=== PATIENT | female | born 1950 | race Caucasian/White ===

== ENCOUNTER 2017-02-06 14:55 | Observation (INO) | payer BC ==
[~2017-02-06] VITALS: Ht 160 cm; Wt 68.7 kg
[2017-02-06] MEDS ORDERED: OMEP20TA PO (15:14)
[2017-02-06] MEDS ORDERED: FLUT45AE IN (15:14)
[2017-02-06] MEDS ORDERED: LORA-741 PO (15:14)
[2017-02-06] MEDS ORDERED: SERT25TA PO (15:14)
[2017-02-06] MEDS ORDERED: MAGN500T15 PO (15:14)
[2017-02-06] MEDS ORDERED: SPRIN/30 INH (15:14)
[2017-02-06] MEDS ORDERED: ASPIRIN 81 MG CHEW PO STA (15:22)
[2017-02-06] MEDS ORDERED: NITROGLYCERIN 0.4 MG SL PER TAB CHARGE SL PRN ×2 (15:30→18:45)
[2017-02-06] MEDS ORDERED: OPTIRAY 320 IV PRN (15:45)
[2017-02-06 15:47] LABS: BASO % 0.9 %; BASO ABS # 0.07 K/uL (0-0.2); COMPLETE YES; EOS % 5.8 %; HEMATOCRIT 39.5 % (37-47); IG% 0.3 %; LYMPH % 27.2 %; LYMPH ABS # 2.01 K/uL (1.2-3.4); MEAN CELL VOLUME 88.6 fL (80-100); MEAN CORPUSCULAR HEMOGLOBIN 29.6 pg (25-34); MEAN CORPUSCULAR HGB CONC 33.4 g/dl (32-36); MEAN PLATELET VOLUME 9.2 fL (7.4-10.4); MONO % 10.2 %; NEUT % 55.6 %; PLATELET COUNT 298 K/uL (130-400); RED BLOOD COUNT 4.46 M/uL (4.2-5.4); WHITE BLOOD COUNT 7.38 K/uL (4.8-10.8)
--- NOTE | 2017-02-06 15:55 | DIAGNOSTIC IMAGING REPORT ---
SINGLE VIEW CHEST CLINICAL HISTORY: Atypical chest pain. FINDINGS: An AP, portable, upright chest radiograph is obtained. No prior studies are available for comparison at the time of dictation. The examination is degraded by portable technique and patient rotation. The cardiomediastinal silhouette is unremarkable. Emphysema is suspected. There is nonspecific interstitial thickening. No airspace consolidation or large pleural effusion is identified. There is a questionable nodular density projecting over the right lung base. No pneumothorax is seen. The skeletal structures are osteopenic. The bony thorax is grossly intact. IMPRESSION: 1. Suspect emphysema. No acute cardiopulmonary abnormality is seen. 2. Question a nodular density at the right lung base which marrow present artifact/super in position of shadows. Correlation with a dedicated PA and lateral examination is recommended. Electronically signed by: Gene Ford M.D. 02/06/2017 3:53 PM Dictated Date/Time: 02/06/2017 3:51 PM
[2017-02-06 16:11] LABS: BLOOD UREA NITROGEN 15 mg/dl (7-18); BUN/CREATININE RATIO 16.1 (10-20); CARBON DIOXIDE 27 mmol/L (21-32); CHLORIDE 105 mmol/L (98-107); GLUCOSE 93 mg/dl (70-99); POTASSIUM 3.9 mmol/L (3.5-5.1); SODIUM 139 mmol/L (136-145)
[2017-02-06 16:16] LABS: CKMB/CK RATIO 1.5 (0-3.0)
--- NOTE | 2017-02-06 17:09 | DIAGNOSTIC IMAGING REPORT ---
(CHEST FOR PE) ANGIO WITH CT DOSE: 301.32 mGycm HISTORY: Chest pain dyspnea TECHNIQUE: Multiaxial CT images of the chest were performed following the intravenous administration of contrast to evaluate the pulmonary arteries. Maximal intensity projection images were also obtained. A dose lowering technique was utilized adhering to the principles of ALARA. COMPARISON STUDY: None. FINDINGS: Mild left ischemic change thoracic aorta. Moderate emphysematous change. Diffuse chronic interstitial change. Pulmonary vascularity enhances appropriately. There are no significant filling defects. IMPRESSION: No evidence for pulmonary embolus. Emphysematous change. Diffuse parenchymal fibrosis. The above report was generated using voice recognition software. It may contain grammatical, syntax or spelling errors. Electronically signed by: Papo Aden M.D. 02/06/2017 5:08 PM Dictated Date/Time: 02/06/2017 5:06 PM
[2017-02-06] MEDS ORDERED: ACETAMINOPHEN 325 MG TAB PO PRN (18:45)
[2017-02-06] MEDS ORDERED: ONDANSETRON INJ 2 MG/ML 2 ML VIAL IV PRN (18:45)
[2017-02-06] MEDS ORDERED: POLYETHYLENE (MIRALAX) 17 GM PACK PO PRN (18:45)
[2017-02-06] MEDS ORDERED: ALUMINUM/MAGNESIUM/SIMETH (MAALOX MAX) 30 ML UDC PO PRN (18:45)
[2017-02-06] MEDS ORDERED: MAGNESIUM HYDROXIDE SUSP 30 ML UDC PO PRN (18:45)
--- NOTE | 2017-02-06 19:21 | EMERGENCY ROOM VISIT NOTE ---
History Report prepared by Corky: Aris Malone Under the Supervision of: Dr. Davonte Shannon D.O. First contact with patient: 15:12 Chief Complaint: CHEST PAIN Stated Complaint: CHEST PAIN Nursing Triage Summary: since 0700. patient c/o generalized chest tightness to lower chest. denies SOB. pain radiates to back. History of Present Illness The patient is a 66 year old female who presents to the Emergency Room with complaints of back pain that began this morning. Earlier this morning, the patient's pain started as chest pain that she describes as a belt across her chest wrapping around to her back. She lay down for a while and her pain improved, but is still present. She denies any recent exertion because she gets very short of breath with it. She denies any fevers, shortness of breath, jaw pain, arm pain, nausea, vomiting, diarrhea, or abnormal urinary symptoms. She denies any recent stress tests or cardiac catheterizations. Patient denies swelling of calves, recent trips, history of immobilization or recent surgery, prior history of DVT, hemoptysis, history of malignancy, or recent history of smoking. Patient denies diabetes, hypertension, hyperlipidemia, CAD, cancer, PE , history of sudden at a young age, and smoking. Source of History: patient Onset: this morning Position: back (upper) Symptom Intensity: moderate Quality: ache Timing: constant Associated Symptoms: + chest pain (tightness), No fevers, No SOB, No nausea , No vomiting, No diarrhea, No urinary symptoms Review of Systems See HPI for pertinent positives & negatives. A total of 10 systems reviewed and were otherwise negative. Past Medical & Surgical Medical Problems: (1) Chest pain (2) No Known Active Medical Problems Family History Omitted secondary to the patient's age. Social History Smoking Status: Former Smoker Smokeless Tobacco Use: No Drug Use: none Marital Status: Housing Status: lives with significant other Current/Historical Medications Scheduled Fluticasone-Salmeterol 45/21 Mcg (Advair Hfa 45/21 Mcg), 2 PUFFS IN BID Lorazepam (Ativan), 0.5 MG PO HS Magnesium (Magnesium), 500 MG PO DAILY Omeprazole (Omeprazole), 40 MG PO DAILY Sertraline (Zoloft), 25 MG PO DAILY Tiotropium [place] (Spiriva Handihaler), 1 CAP INH DAILY Allergies Coded Allergies: No Known Allergies (Unverified , 02/06/17) Physical Exam Vital Signs Date Time Temp Pulse Resp B/P (MAP) Pulse Ox O2 Delivery O2 Flow Rate FiO2 02/06/17 17:43 77 16 138/89 93 Room Air 02/06/17 16:24 83 16 127/82 96 Room Air 02/06/17 16:09 71 02/06/17 15:50 97 18 116/83 98 Room Air 02/06/17 15:42 69 16 167/89 94 Room Air 02/06/17 15:05 94 Room Air 02/06/17 15:02 36.7 66 22 148/90 94 Room Air Physical Exam GENERAL: Sitting up in bed, alert, well appearing, well nourished, no distress, non-toxic EYE EXAM: normal conjunctiva. OROPHARYNX: no exudate, no erythema, lips, buccal mucosa, and tongue normal and mucous membranes are moist NECK: supple, no nuchal rigidity, no adenopathy, non-tender LUNGS: Clear to auscultation. Normal chest wall mechanics HEART: no murmurs, S1 normal and S2 normal CHEST: Reproducible anterior chest wall tenderness. Different from her stated complaint. ABDOMEN: abdomen soft, non-tender, normo-active bowel sounds, no masses, no rebound or guarding. BACK: Back is symmetrical on inspection and there is no deformity, no midline tenderness, no CVA tenderness. SKIN: no rashes and no bruising UPPER EXTREMITIES: upper extremities are grossly normal. Radial pulses equal bilaterally. LOWER EXTREMITIES: No pitting edema. Calves equal bilaterally. NEURO EXAM: Normal sensorium, cranial nerves II-XII grossly intact, normal speech, no gross weakness of arms, no gross weakness of legs. Medical Decision & Procedures ER Provider Diagnostic Interpretation: Radiology results as stated below per my review and the radiologist's interpretation: SINGLE VIEW CHEST CLINICAL HISTORY: Atypical chest pain. FINDINGS: An AP, portable, upright chest radiograph is obtained. No prior studies are available for comparison at the time of dictation. The examination is degraded by portable technique and patient rotation. The cardiomediastinal silhouette is unremarkable. Emphysema is suspected. There is nonspecific interstitial thickening. No airspace consolidation or large pleural effusion is identified. There is a questionable nodular density projecting over the right lung base. No pneumothorax is seen. The skeletal structures are osteopenic. The bony thorax is grossly intact. IMPRESSION: 1. Suspect emphysema. No acute cardiopulmonary abnormality is seen. 2. Question a nodular density at the right lung base which marrow present artifact/super in position of shadows. Correlation with a dedicated PA and lateral examination is recommended. Electronically signed by: Gene Ford M.D. 02/06/2017 3:53 PM Dictated Date/Time: 02/06/2017 3:51 PM (CHEST FOR PE) ANGIO WITH CT DOSE: 301.32 mGycm HISTORY: Chest pain dyspnea TECHNIQUE: Multiaxial CT images of the chest were performed following the intravenous administration of contrast to evaluate the pulmonary arteries. Maximal intensity projection images were also obtained. A dose lowering technique was utilized adhering to the principles of ALARA. COMPARISON STUDY: None. FINDINGS: Mild left ischemic change thoracic aorta. Moderate emphysematous change. Diffuse chronic interstitial change. Pulmonary vascularity enhances appropriately. There are no significant filling defects. IMPRESSION: No evidence for pulmonary embolus. Emphysematous change. Diffuse parenchymal fibrosis. The above report was generated using voice recognition software. It may contain grammatical, syntax or spelling errors. Electronically signed by: Papo Aden M.D. 02/06/2017 5:08 PM Dictated Date/Time: 02/06/2017 5:06 PM Laboratory Results 02/06/17 15:30 Red Blood Count 4.46, Mean Corpuscular Volume 88.6, Mean Corpuscular Hemoglobin 29.6, Mean Corpuscular Hemoglobin Concent 33.4, Mean Platelet Volume 9.2, Neutrophils (%) (Auto) 55.6, Lymphocytes (%) (Auto) 27.2, Monocytes (%) (Auto) 10.2, Eosinophils (%) (Auto) 5.8, Basophils (%) (Auto) 0.9, Neutrophils # (Auto ) 4.10, Lymphocytes # (Auto) 2.01, Monocytes # (Auto) 0.75, Eosinophils # (Auto ) 0.43, Basophils # (Auto) 0.07 02/06/17 15:30 Test 02/06/17 15:30 White Blood Count 7.38 K/uL (4.8-10.8) Red Blood Count 4.46 M/uL (4.2-5.4) Hemoglobin 13.2 g/dL (12.0-16.0) Hematocrit 39.5 % (37-47) Mean Corpuscular Volume 88.6 fL (80-100) Mean Corpuscular Hemoglobin 29.6 pg (25-34) Mean Corpuscular Hemoglobin Concent 33.4 g/dl (32-36) Platelet Count 298 K/uL (130-400) Mean Platelet Volume 9.2 fL (7.4-10.4) Neutrophils (%) (Auto) 55.6 % Lymphocytes (%) (Auto) 27.2 % Monocytes (%) (Auto) 10.2 % Eosinophils (%) (Auto) 5.8 % Basophils (%) (Auto) 0.9 % Neutrophils # (Auto) 4.10 K/uL (1.4-6.5) Lymphocytes # (Auto) 2.01 K/uL (1.2-3.4) Monocytes # (Auto) 0.75 K/uL (0.11-0.59) Eosinophils # (Auto) 0.43 K/uL (0-0.5) Basophils # (Auto) 0.07 K/uL (0-0.2) RDW Standard Deviation 43.8 fL (36.4-46.3) RDW Coefficient of Variation 13.5 % (11.5-14.5) Immature Granulocyte % (Auto) 0.3 % Immature Granulocyte # (Auto) 0.02 K/uL (0.00-0.02) D-Dimer 530 ug/L FEU (0-500) Anion Gap 7.0 mmol/L (3-11) Est Creatinine Clear Calc Drug Dose 57.1 ml/min Estimated GFR () 77.2 Estimated GFR (Non- 66.6 BUN/Creatinine Ratio 16.1 (10-20) Calcium Level 9.0 mg/dl (8.5-10.1) Total Creatine Kinase 84 U/L (26-192) Creatine Kinase MB 1.3 ng/ml (0.5-3.6) Creatine Kinase MB Ratio 1.5 (0-3.0) Troponin I < 0.015 ng/ml (0-0.045) Laboratory results per my review. Medications Administered Medications (Trade) Dose Ordered Sig/Flakito Route Start Time Stop Time Status Last Admin Dose Admin Aspirin (Aspirin Chew) 324 mg NOW STAT PO 02/06/17 15:22 02/06/17 15:24 DC 02/06/17 15:44 324 MG Nitroglycerin (Nitrostat Tab) 0.4 mg Q5M PRN SL 02/06/17 15:30 03/08/17 15:29 02/06/17 15:44 0.4 MG ECG Indication: chest pain Rate (beats per minute): 80 Rhythm: sinus rhythm Findings: no acute ischemic change, no ectopy, other (Normal axis) ED Course ED COURSE: Vital signs were reviewed and showed hypertensive. The patients medical record was reviewed The above diagnostic studies were performed and reviewed. ED treatments and interventions as stated above. 1512: The patient was evaluated in room C4. A complete history and physical examination was performed. 1722: Upon reevaluation, the patient is resting. I discussed my findings with the patient and she understands and agrees with the treatment plan. Based on the patients age, coexisting illnesses, exam and lab findings the decision to treat as an inpatient was made. The patient remained stable while under my care. The patient will be evaluated by Dr. Eduard LIMON, for further management. Medical Decision Differential diagnoses includes but is not limited to acute coronary syndrome, myocardial infarction, pericarditis, pulmonary embolus, aortic dissection, pneumonia, pneumothorax, musculoskeletal, shingles, esophageal. Patient is a 66-year-old female who presents to ER for chest pain started around 7:30 and has improved. She notes it wraps around her chest and feels a tightness. She now has minimal tightness and mild pain in her back. No arm or jaw pain. Symptoms started to improve around 12 PM. Previous smoker. No history of CAD. CBC along with BMP and troponin were negative. D-dimer was elevated. CTA of the chest shows no dissection or PEs. Chest x-ray unremarkable. EKG unchanged. Patient was updated regards to her findings. Symptoms resolved with nitroglycerin. She does have reproducible chest pain which is separate onto the tightness she was experiencing. Based on her symptoms and discussed case with internal medicine for observation/admission. Medication Reconcilliation Current Medication List: was personally reviewed by me Blood Pressure Screening Patient's blood pressure: Elevated blood pressure Blood pressure disposition: Referred to PCP Consults Time Called: 1720 Consulting Physician: Dr. Eduard LIMON Returned Call: 1722 I reviewed the patient's case with her. She will evaluate the patient for further management. Impression Primary Impression: Substernal precordial chest pain Scribe Attestation The scribe's documentation has been prepared under my direction and personally reviewed by me in its entirety. I confirm that the note above accurately reflects all work, treatment, procedures, and medical decision making performed by me. Departure Information Dispostion Being Evaluated By Hospitalist Referrals Gene Roa M.D. (PCP) Patient Instructions [facility]
[2017-02-06 20:03] VITALS: BP 166/90; PULSE 72; TEMP 36.7; O2SAT 93; Ht 160 cm; Wt 68.7 kg
[2017-02-06 20:43] LABS: PROTHROMBIN TIME (PATIENT) 10.5 SECONDS (9.0-12.0)
[2017-02-06] MEDS ORDERED: ENOXAPARIN 40 MG/0.4 ML SYR SC SCH (21:00)
[2017-02-06] MEDS ORDERED: IV FLUIDS COMPLETED PRN (21:00)
[2017-02-06] MEDS ORDERED: LORAZEPAM 0.5 MG TAB PO SCH (21:00)
[2017-02-06] MEDS: FLUTICASONE/SALMETEROL 100/50 (ADVAIR) 14 PUFF/1 INHALER INH SCH (21:08)
--- NOTE | 2017-02-06 21:54 | History and Physical ---
History & Physical Date & Time of Service: Feb 06, 2017 at 21:53 Chief Complaint: Chest Pain Primary Care Physician: Gene Roa M.D. Social History Smoking Status: Never Smoker Smokeless Tobacco Use: No Drug Use: none Marital Status: Allergies Coded Allergies: No Known Allergies (Unverified , 02/06/17) Home Medications Scheduled Fluticasone-Salmeterol 45/21 Mcg (Advair Hfa 45/21 Mcg), 2 PUFFS IN BID Lorazepam (Ativan), 0.5 MG PO HS Magnesium (Magnesium), 500 MG PO DAILY Omeprazole (Omeprazole), 40 MG PO DAILY Sertraline (Zoloft), 25 MG PO DAILY Tiotropium [place] (Spiriva Handihaler), 1 CAP INH DAILY Physical Exam Vital Signs Date Time Temp Pulse Resp B/P (MAP) Pulse Ox O2 Delivery O2 Flow Rate FiO2 02/06/17 20:03 36.7 72 16 166/90 93 Room Air 02/06/17 19:07 36.7 74 16 141/78 95 Room Air 02/06/17 17:43 77 16 138/89 93 Room Air 02/06/17 16:24 83 16 127/82 96 Room Air 02/06/17 16:09 71 02/06/17 15:50 97 18 116/83 98 Room Air 02/06/17 15:42 69 16 167/89 94 Room Air 02/06/17 15:05 94 Room Air 02/06/17 15:02 36.7 66 22 148/90 94 Room Air Diagnostics Laboratory Results Results Past 24 Hours Test 02/06/17 15:30 Range/Units White Blood Count 7.38 4.8-10.8 K/uL Red Blood Count 4.46 4.2-5.4 M/uL Hemoglobin 13.2 12.0-16.0 g/dL Hematocrit 39.5 37-47 % Mean Corpuscular Volume 88.6 80-100 fL Mean Corpuscular Hemoglobin 29.6 25-34 pg Mean Corpuscular Hemoglobin Concent 33.4 32-36 g/dl Platelet Count 298 130-400 K/uL Mean Platelet Volume 9.2 7.4-10.4 fL Neutrophils (%) (Auto) 55.6 % Lymphocytes (%) (Auto) 27.2 % Monocytes (%) (Auto) 10.2 % Eosinophils (%) (Auto) 5.8 % Basophils (%) (Auto) 0.9 % Neutrophils # (Auto) 4.10 1.4-6.5 K/uL Lymphocytes # (Auto) 2.01 1.2-3.4 K/uL Monocytes # (Auto) 0.75 0.11-0.59 K/uL Eosinophils # (Auto) 0.43 0-0.5 K/uL Basophils # (Auto) 0.07 0-0.2 K/uL RDW Standard Deviation 43.8 36.4-46.3 fL RDW Coefficient of Variation 13.5 11.5-14.5 % Immature Granulocyte % (Auto) 0.3 % Immature Granulocyte # (Auto) 0.02 0.00-0.02 K/uL Prothrombin Time 10.5 9.0-12.0 SECONDS Prothromb Time International Ratio 1.0 0.9-1.1 D-Dimer 530 0-500 ug/L FEU Sodium Level 139 136-145 mmol/L Potassium Level 3.9 3.5-5.1 mmol/L Chloride Level 105 98-107 mmol/L Carbon Dioxide Level 27 21-32 mmol/L Anion Gap 7.0 3-11 mmol/L Blood Urea Nitrogen 15 7-18 mg/dl Creatinine 0.90 0.60-1.20 mg/dl Est Creatinine Clear Calc Drug Dose 57.1 ml/min Estimated GFR () 77.2 Estimated GFR (Non- 66.6 BUN/Creatinine Ratio 16.1 10-20 Random Glucose 93 70-99 mg/dl Calcium Level 9.0 8.5-10.1 mg/dl Total Creatine Kinase 84 26-192 U/L Creatine Kinase MB 1.3 0.5-3.6 ng/ml Creatine Kinase MB Ratio 1.5 0-3.0 Troponin I < 0.015 0-0.045 ng/ml Impression Assessment and Plan obs #[id number] Advanced Directives Existing Living Will: No Existing Power of Art Gilder: No VTE Prophylaxis VTE Risk Assessment Done? Y/N: Yes Risk Level: Moderate Given or contraindicated: Enoxaparin (Lovenox)SQ
[2017-02-06 23:02] VITALS: BP 127/73; PULSE 90; TEMP 36.7; O2SAT 96
--- NOTE | 2017-02-06 23:02 | HISTORY & PHYSICAL EXAMINATION ---
DATE OF ADMISSION: 02/06/2017 CHIEF COMPLAINT: Chest tightness. HISTORY OF PRESENT ILLNESS: The patient is a very pleasant 66-year-old female who notes that yesterday she was feeling fine. She does not recall anything, no strenuous lifting, no dyspnea, no anything out of the ordinary, she had a fairly normal day, went to bed feeling fine and then woke up around 7:30 in the morning feeling tight across her whole chest. She motions across her lower part of her rib cage/upper abdomen and then around to her back. She notes that the pain radiated around to her back. It maybe also came through from the back to the front, although this is a little hard to tell. There was no shortness of breath with it, no diaphoresis, no arm or jaw pain. She notes that then after waiting it out for a little while, she had some coffee and then after about an hour or so the pain went away. She had also taken a little bit of a nap and generally feels all better. Her , however, whenever he found out she was having this chest pain, was concerned for her well being and brought her to the ER for further evaluation. Here, we are asked to admit her for further workup to rule out cardiac disease. PAST MEDICAL HISTORY: Includes COPD and GERD. MEDICATIONS: Spiriva, Advair, omeprazole, Zoloft, mag ox 500 at bedtime and Ativan at bedtime. SOCIAL HISTORY: She is a former 1 pack a day smoker, quitting in 2008, but probably smoked 40- to 50-pack years before quitting. 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 FAMILY HISTORY: There is no coronary disease, no vascular disease. Her mom of colon cancer, dad with Alzheimer's. SURGICAL HISTORY: She had a hysterectomy in 1982. ALLERGIES: None. PHYSICAL EXAMINATION: VITAL SIGNS: Temperature 36.7, pulse 66, respiratory rate 22, blood pressure 148/90, 94% on room air. GENERAL: She is awake, alert, oriented x3, pleasant, in no acute distress. HEENT: Normocephalic, atraumatic. Mucous membranes are moist. CARDIOVASCULAR: Regular without rubs, murmurs or gallops. LUNGS: Clear to auscultation bilaterally. No rales, rhonchi or wheezes, with good effort. ABDOMEN: Soft, nondistended, nontender. No masses or organomegaly. EXTREMITIES: Without cyanosis, clubbing or edema. No calf tenderness. SKIN: Shows no rashes, no pallor or icterus. MUSCULOSKELETAL: Shows diminished rib excursion with respiratory motion, although there is no tenderness to be reproduced on palpation of her ribs or of her T-spine paraspinals. NEUROLOGIC: Shows cranial nerves II-XII to be grossly intact. Gross motor and sensory are intact. MENTAL STATE: Shows good recent and remote recall. Normal mood and affect. Good judgment and insight. LABORATORIES AND DIAGNOSTICS: Her CBC shows a white count of 7.38 with 55.6% neutrophils, hemoglobin 13.2, platelets 298. Basic metabolic panel with sodium 139, potassium 3.9, chloride 105, CO2 of 27, BUN 15, creatinine 0.9, calcium 9, glucose 93. CK total of 84 with an MB of 1.3, troponin of less than 0.015. D-dimer is 530. PT of 10.5. Chest x-ray showed suspected emphysema, no acute cardiopulmonary abnormality seen, and a questionable nodular density at the right lung base, they are suspecting to be artifact. However, she also had a chest CT that showed mild left ischemic change of the thoracic aorta, emphysematous change and diffuse interstitial change. It appears atherosclerotic change, this is what is emphasized. There is also diffuse parenchymal fibrosis. EKG is sinus rhythm with no ST-T changes of concern. ASSESSMENT AND PLAN: 1. Chest pain. Her history, physical exam findings and reassuring cardiac findings all make it extremely likely that this is rib related chest pain. We discussed this extensively and discussed stretching exercises and discussed the fact that her air trapping from chronic obstructive pulmonary disease certainly would put her at more risk for rib related pain and this seems to be the most likely etiology. That said, with her age and tobacco abuse history, she does harbor risk for coronary disease and we discussed that it would be very reasonable to follow through with more in-depth testing to ensure she appears safe from a cardiac standpoint. Discussed doing this inpatient versus outpatient, but given her 's concern, given time of day and given the overall situation, it appeared most reasonable to observe her with serial cardiac enzymes and then a stress echo in the a.m. 2. Abnormal chest CT with fibrotic and emphysematous changes. Ongoing outpatient followup. 3. Chronic obstructive pulmonary disease. Continue her home meds. 4. Gastroesophageal reflux disease. Continue home meds. 5. Deep venous thrombosis prophylaxis, Lovenox.
[2017-02-06] MEDS ORDERED: INFLUENZA VACCINE HIGH DOSE 65+ 0.5 ML SYR IM. ONE (23:15)
[2017-02-06] MEDS ORDERED: INFLUENZA ADMINISTRATION CHARGE ONE (23:15)
[2017-02-07 03:18] VITALS: BP 111/71; PULSE 81; TEMP 36.9; O2SAT 96
[2017-02-07 07:35] VITALS: BP 101/66; PULSE 51; TEMP 36.5; O2SAT 99
[2017-02-07 07:52] LABS: CHOLESTEROL/HDL RATIO 5.1
[2017-02-07] MEDS ORDERED: ATROPINE SULFATE 0.1 MG/ML 5ML SYR ONE (08:55)
[2017-02-07] MEDS ORDERED: DOBUTamine 500MG / 250ML D5W ONE (08:55)
[2017-02-07] MEDS ORDERED: METOPROLOL TARTRATE 1 MG/ML VIAL ONE (08:55)
[2017-02-07] MEDS ORDERED: TIOTROPIUM BROMIDE 5 PUFF/90 MCG INH INH SCH (09:00)
[2017-02-07] MEDS ORDERED: MAGNESIUM OXIDE 400 MG TAB PO SCH (09:00)
[2017-02-07] MEDS ORDERED: SERTRALINE HCL 50 MG TAB PO SCH (09:00)
[2017-02-07] MEDS ORDERED: PANTOprazole SOD 40 MG TAB PO SCH (09:00)
[2017-02-07] MEDS: FLUTICASONE/SALMETEROL 100/50 (ADVAIR) 14 PUFF/1 INHALER INH SCH (10:36)
[2017-02-07 11:52] VITALS: BP 121/65; PULSE 76; TEMP 36.7; O2SAT 97
[2017-02-07] MEDS ORDERED: LPT20 PO (13:35)
--- NOTE | 2017-02-07 13:43 | Discharge Instructions ---
Discharge Instructions Date of Service Feb 07, 2017. Admission Reason for Admission: Chest Pain Discharge Discharge Diagnosis / Problem: chest pain Discharge Goals Goal(s): Decrease discomfort, Diagnostic testing Activity Recommendations Activity Limitations: resume your previous activity . Instructions / Follow-Up Instructions / Follow-Up Please follow up with your primary care practitioner in one week Please follow with ENT - our nurse navigator will call you with an appointment You are going home with a new prescription for a statin. Because you have a history of smoking and elevated lipids, this puts you at a bit higher risk for heart attack or stroke. A statin will help to decrease this risk. Current Hospital Diet Patient's current hospital diet: Regular Diet Discharge Diet Recommended Diet: AHA Diet (Heart Healthy) Procedures Procedures Performed: Stress echo - normal Pending Studies Studies pending at discharge: yes List of pending studies: Iron panel Laboratory Results Lipid Panel Test 02/07/17 06:45 Range/Units Triglycerides Level 184 H 0-150 mg/dl Cholesterol Level 242 H 0-200 mg/dl HDL Cholesterol 47 mg/dl Cholesterol/HDL Ratio 5.1 LDL Cholesterol, Calculated 158 mg/dl Medical Emergencies . Who to Call and When: Medical Emergencies: If at any time you feel your situation is an emergency, please call 911 immediately. . Non-Emergent Contact Non-Emergency issues call your: Primary Care Provider . Past History Medical & Surgical History: (1) Chest pain . "Provider Documentation" section prepared by Marion Corral. . VTE Core Measure Inpt VTE Proph given/why not?: Enoxaparin (Lovenox)SQ
[2017-02-07 13:55] LABS: FERRITIN 136.3 ng/ml (8.0-388.0); MAGNESIUM 2.3 mg/dl (1.8-2.4); TOTAL IRON BINDING CAPACITY 317 mcg/dl (250-450)
[2017-02-07] MEDS ORDERED: RANI1TAB75 PO (13:55)
[2017-02-07 14:09] VITALS: BP 121/65; PULSE 76; TEMP 36.7; O2SAT 97
--- NOTE | 2017-02-07 15:47 | Discharge Summary ---
Discharge Summary Date of Service Feb 07, 2017. (Marion Corral CRNP) Discharge Summary Admission Date: Feb 06, 2017 at 18:34 Discharge Date: Feb 07, 2017 Discharge Disposition: Home Principal Diagnosis: chest pain Problems/Secondary Diagnoses: COPD GERD Procedures: Dobutamine stress test (Marion Corral CRNP) Problems/Secondary Diagnoses: hyperlipidemia chronic hoarse voice (Elieser Orona MD) Medication Reconciliation New Medications: Atorvastatin (Atorvastatin Calcium) 20 Mg Tab 10 MG PO DAILY for 30 Days, #30 DOSE Ranitidine HCl (Ranitidine 75) 75 Mg Tab 75 MG PO DAILY for 30 Days, #30 DOSE Continued Medications: Fluticasone-Salmeterol 45/21 Mcg (Advair Hfa 45/21 Mcg) 1 Aer Aer 2 PUFFS IN BID, AER Lorazepam (Ativan) 0.5 Mg Tab 0.5 MG PO HS, TAB Magnesium (Magnesium) 500 Mg Tab 500 MG PO DAILY Omeprazole (Omeprazole) 20 Mg Tab 40 MG PO DAILY for 90 Days, #180 TAB 3 Refills Sertraline (Zoloft) 25 Mg Tab 25 MG PO DAILY, TAB Tiotropium [place] (Spiriva Handihaler) 30 Puff/540 Mcg Aerp 1 CAP INH DAILY, INHALER Discharge Exam ROS Constitutional: no chills, aches, sweats or fever Respiratory: no sob,cough, sputum, or wheezing Cardiac: no chest pain, palpitations, edema, orthopnea or lightheadedness GI: no abdominal pain, nausea, vomiting, diarrhea or constipation : no dysuria or hesitancy Extremities: no joint pain or weakness Skin: no rash PE General: no distress Eyes: normal inspection, PERLL Respiratory: chest non tender, clear to auscultation, normal breath sounds, no respiratory distress, no accessory muscle use Cardiac: regular rate and rhythm, no rub or gallop, no murmur, no edema, no jvd GI/: active bowel sounds, no abd pain or tenderness, soft, non distended Extremities: normal range of motion, normal strength, non tender Neuro/Psych: alert and oriented x 3, normal mood and affect Skin: normal color, dry (Marion Corral CRNP) Hospital Course [age] year old woman here for chest pain localized around rib/abdomen with pain radiating around to her back without accompanying sob, diaphoresis, or n/ v. Chest pain r/o ACS - likely musculoskeletal in nature - troponins normal - stress test normal - lipid panel showed elevated cholesterol and triglycerides and coupled with her history of smoking, statin therapy was initiated with atorvastatin 10mg daily Restless legs/leg cramps - electrolytes wnl - iron studies wnl Abnormal chest CT with fibrotic and emphysematous changes. -Ongoing outpatient followup. Chronic obstructive pulmonary disease. - Continued her home meds, O2 Gastroesophageal reflux disease. - Continued home meds. - patient complains of ongoing hoarse voice - added ranitidine as well as follow up with ENT Total Time Spent: Less than 30 minutes This includes examination of the patient, discharge planning, medication reconciliation, and communication with other providers. (Marion Corral CRNP) Attending Discharge Note & Attestation: Pt seen/examined, chart reviewed, care plan d/w [place] Corral. I agree/ w the huerta components of her discharge summary. 66yo female with h/o prior tobacco dependence and known COPD who presented with chest pain/upper abdominal discomfort that awoken her from sleep. Full cardiac w/u including EKGs, telemetry, cardiac enzymes, and dobutamine stress echocardiogram were entirely normal. Suspect that her pain was musculoskeletal in origin; pulmonary or GI causes less likely. She complained of 6+ months of hoarse voice in the absence of dysphagia/ odynophagia. She also complained of severe reflux symptoms. ENT evaluation was advised and addition of H2 maria d to her PPI was recommended. ENT appointment was given to patient at time of discharge. Discharge exam - gen - NAD neck - no JVD mouth - no lesions voice - hoarse heart - RRR, s1, s2, no murmur lungs - CTA b/l except occasional wheeze chest - nontender to palpation abd - soft, NT, ND, BS+ ext - no edema Ms. Corral recommended statin therapy for her hyperlipidemia and I concurred with that recommendation. Elieser Orona MD (Elieser Orona MD) Discharge Instructions Please refer to the electronic Patient Visit Report (Discharge Instructions) for additional information. (Marion Corral CRNP) Follow-Up Ear, Nose, and Throat Office with Dr. La on February 16 at 1:30 pm (Marion Corral ., [place]) Additional Copies To Gene Roa M.D.
--- NOTE | 2017-02-08 09:37 | DOBUTAMINE ECHO ---
*NOTICE TO RECEIVING LIBERTARIAN AGENCY This information is strictly Confidential and protected under [place] law. [place] law prohibits you from making any further disclosure of this information unless further disclosure is expressly permitted by the written consent of the person to whom it pertains or is authorized by law. A general authorization for the release of medical or other information is not sufficient for this purpose. Hospital accepts no responsibility if the information is made available to any other person, INCLUDING THE PATIENT. Interpretation Summary * BP: 126/75 mmHg * Patient Location: [facility] HR: 74 * : 1950 (M/d/yyyy) Gender: Female Height: 63 in * Age: 66 yrs Ethnicity: [place] Weight: 151 lb * Ordering Physician: Davonte Chapa * Referring Physician: Self, Referred * Performed By: Margarita Baltazar RCS * * Reason For Study: Chest Pain, SOB * BSA: 1.7 m2 * -- Conclusions -- * 1. Normal dobutamine stress echocardiogram at 86% of the maximum predicted heart rate. * 2. No dobutamine induced chest pain. * 3. No EKG changes. * 4. Baseline echocardiogram notes normal left ventricular systolic function and mild tricuspid regurgitation. Procedure Details * Left Ventricle The left ventricle is normal in size. There is borderline concentric left ventricular hypertrophy. Ejection Fraction = 60-65%. Left ventricular systolic function is normal. Resting wall motion: Normal. Stress wall motion: Appropriate increase in Left ventricular systolic function and decrease in cavity size. No stress induced segmental wall motion abnormalities. * Right Ventricle The right ventricle is normal size. The right ventricular systolic function is normal as assessed by tricuspid annular plane systolic excursion (TAPSE) (normal >1.5 cm). * Atria The left atrial size is normal. Right atrial size is normal. No ASD detected; PFO is not assessed. * Mitral Valve The mitral valve is normal in structure and function. Mitral stenosis is absent. There is trace mitral regurgitation. * Tricuspid Valve The tricuspid valve anatomy is normal. Tricuspid stenosis is absent. There is mild tricuspid regurgitation. * Aortic Valve The aortic valve is normal in structure and function. Aortic stenosis is absent. No aortic regurgitation is present. * Pulmonic Valve The pulmonary valve is not well seen, but the Doppler examination is normal without significant regurgitation or stenosis. * Great Vessels The aortic root is normal size. The pulmonary artery is not well visualized, but is probably normal size. * Pericardium There is no pericardial effusion. * Stress Parameters Normal baseline electrocardiogram. Stress ECG: No ST changes. No arrhythmias. The stress portion of this study was personally supervised by the undersigned interpreting physician. Rest heart rate was '74' BPM. Rest blood pressure was '126/75' Maximum heart rate achieved was 136 bpm. Maximum heart rate was 88 % of maximum age-predicted heart rate. Maximum blood pressure was '138/76' Maximum Dobutamine infusion rate was '30' mcg/kg/min. Dobutamine infusion was terminated due to achieving target heart rate A total of 5 mg of IV Metoprolol was administered to reverse Dobutamine-induced tachycardia. The patient did not exhibit any symptoms during drug infusion. Normal blood pressure response to exercise. * Left Ventricular Diastolic Function Grade I diastolic dysfunction, (abnormal relaxation pattern). * * MMode 2D Measurements and Calculations * IVSd 0.90 cm * IVSs 1.2 cm * * LVIDd 4.4 cm * LVIDs 3.1 cm * LVPWd 0.94 cm * LVPWs 1.2 cm * * IVS/LVPW 0.96 * FS 29.8 % * EDV(Teich) 86.1 ml * ESV(Teich) 36.8 ml * EF(Teich) 57.2 % * * EDV(cubed) 83.2 ml * ESV(cubed) 28.7 ml * EF(cubed) 65.4 % * % IVS thick 34.6 % * % LVPW thick 26.9 % * * LV mass(C)d 129.9 grams * LV mass(C)dI 75.7 grams/m\S\2 * LV mass(C)s 112.4 grams * LV mass(C)sI 65.5 grams/m\S\2 * * SV(Teich) 49.2 ml * SI(Teich) 28.7 ml/m\S\2 * SV(cubed) 54.4 ml * SI(cubed) 31.7 ml/m\S\2 * * Ao root diam 3.7 cm * Ao root area 10.9 cm\S\2 * ACS 1.7 cm * LA dimension 3.1 cm * * asc Aorta Diam 3.2 cm * * LA/Ao 0.82 * * LVAd ap4 25.5 cm\S\2 * LVLd ap4 7.6 cm * EDV(MOD-sp4) 69.5 ml * EDV(sp4-el) 72.3 ml * LVAs ap4 14.7 cm\S\2 * LVLs ap4 6.6 cm * ESV(MOD-sp4) 27.3 ml * ESV(sp4-el) 27.7 ml * EF(MOD-sp4) 60.7 % * EF(sp4-el) 61.7 % * * LVAd ap2 24.2 cm\S\2 * LVLd ap2 7.5 cm * EDV(MOD-sp2) 65.2 ml * EDV(sp2-el) 66.3 ml * LVAs ap2 12.9 cm\S\2 * LVLs ap2 5.8 cm * ESV(MOD-sp2) 26.4 ml * ESV(sp2-el) 24.6 ml * EF(MOD-sp2) 59.5 % * EF(sp2-el) 63.0 % * * LVLd %diff -1.77 % * EDV(MOD-bp) 68.8 ml * LVLs %diff -15.30 % * ESV(MOD-bp) 28.5 ml * EF(MOD-bp) 58.6 % * * SV(MOD-sp4) 42.2 ml * SI(MOD-sp4) 24.6 ml/m\S\2 * * SV(MOD-sp2) 38.8 ml * SI(MOD-sp2) 22.6 ml/m\S\2 * * SV(MOD-bp) 40.3 ml * SI(MOD-bp) 23.5 ml/m\S\2 * * SV(sp4-el) 44.6 ml * SI(sp4-el) 26.0 ml/m\S\2 * * SV(sp2-el) 41.8 ml * SI(sp2-el) 24.3 ml/m\S\2 * * * * * * Doppler Measurements and Calculations * MV E max tommy 83.0 cm/sec * MV A max tommy 77.4 cm/sec * * MV E/A 1.1 * * MV P1/2t max tommy 80.4 cm/sec * MV P1/2t 73.2 msec * MVA(P1/2t) 3.0 cm\S\2 * MV dec slope 321.5 cm/sec\S\2 * MV dec time 0.23 sec * * Ao V2 max 111.9 cm/sec * Ao max PG 5.0 mmHg * Ao max PG (full) 1.5 mmHg * * LV V1 max PG 3.5 mmHg * * LV V1 max 93.8 cm/sec * * PA V2 max 77.6 cm/sec * PA max PG 2.4 mmHg * * TR max tommy 235.5 cm/sec * *
== END 2017-02-07 14:25 | disposition home or self-care (01) ==
LOC: C.EDB 14:56 → C.2T 18:34 → ENRESERV 18:59
PROVIDERS: ADMIT Family Medicine; ATTEND Internal Medicine
DX: R07.2 Precordial pain (principal); Z87.891 Personal history of nicotine dependence; J44.9 Chronic obstructive pulmonary disease, unspecified; K21.9 Gastro-esophageal reflux disease without esophagitis; Z82.0 Family history of epilepsy and other diseases of the nervous system; Z80.0 Family history of malignant neoplasm of digestive organs; Z90.710 Acquired absence of both cervix and uterus; E78.5 Hyperlipidemia, unspecified

== ENCOUNTER → 2017-02-16 | Outpatient (CLI) | payer BC ==
[~2017-02-16] MED LIST: FLUT45AE IN; LORA-741 PO; LPT20 PO; MAGN500T15 PO; OMEP20TA PO; RANI1TAB75 PO; SERT25TA PO; SPRIN/30 INH
--- NOTE | 2017-02-16 10:40 | DIAGNOSTIC IMAGING REPORT ---
ABDOMEN LIMITED (US) HISTORY: 66 years-old Female R10.9 Abdominal painR10.13 Abdominal pain, [id number] acute generalized abdominal pain COMPARISON: CTA of the chest 02/06/2017 TECHNIQUE: Multiple real-time sonographic images of the abdominal right upper quadrant were obtained assessing grayscale appearance and color flow FINDINGS: Imaged pancreas is unremarkable with distal body and tail obscured by bowel gas. There is a 4 mm low attenuating lesion of the left hepatic lobe suggesting a cyst. There is increased echogenicity of the liver suggesting fatty infiltration. Hypoechoic structure with increased through transmission is noted within the right hepatic lobe measuring up to 0.8 x 1.2 x 1.3 cm, image 30 of 49. This correlates with a 1.5 x 1.1 cm lesion of the subserosal posterior right hepatic lobe seen on comparison CT. Focal area of slightly decreased echogenicity in the mary jo hepatis measuring up to 2.4 cm suggests focal fatty sparing. No intrahepatic biliary ductal dilation. Gallbladder is unremarkable without wall thickening, shadowing cholelithiasis or pericholecystic fluid collections. Common bile duct is normal, 0.4 cm. Imaged right kidney is unremarkable without hydronephrosis. IMPRESSION: 1. No cholelithiasis or sonographic evidence of acute cholecystitis. 2. Increased echogenicity of the liver suggests fatty infiltration. Focal area of decreased echogenicity of the mary jo hepatis measuring up to 2.4 cm is indeterminate however suggests focal fatty sparing. 3. Hypoechoic lesion of the subserosal posterior right hepatic lobe measuring up to 1.3 cm suggests cluster of hepatic cysts. 4. No biliary ductal dilation. The above report was generated using voice recognition software. It may contain grammatical, syntax or spelling errors. Electronically signed by: Ehsan Waldrop M.D. 02/16/2017 10:39 AM Dictated Date/Time: 02/16/2017 10:28 AM
== END | disposition home or self-care (01) ==
LOC: C.ULTR 09:34
PROVIDERS: ATTEND Family Medicine
DX: R10.9 Unspecified abdominal pain (principal); R10.13 Epigastric pain